=== PATIENT | female | born 2000 | race Caucasian/White ===

== ENCOUNTER → 2020-06-05 | Outpatient (CLI) | payer BC, MEDICAID ==
[~2020-06-05] MED LIST: IBU600 MG PO; RT ALBUTER2.5 MG/0.5 IH; TRIAMCINOLONE A15 G3 TP
== END ==
LOC: ZCOL.LAB
DX: Z20.822 Contact with and (suspected) exposure to COVID-19 (principal)

== ENCOUNTER 2020-06-09 11:11 | Inpatient (IN) | payer BC, MEDICAID ==
[2020-06-09] VITALS (39 sets, daily range): BP systolic 111–161; BP diastolic 55–93; PULSE 75–139; TEMP 98.1–99.1
[~2020-06-09] VITALS: Ht 154.9 cm; Wt 86.2 kg
[~2020-06-09 11:11] MED LIST changes: -IBU600 MG PO
[2020-06-09 12:14] LABS: ALBUMIN 3.6 gm/dL (3.5-5.0); BILIRUBIN,TOTAL 0.6 mg/dL (0.0-1.0); CALCIUM 9.3 mg/dL (8.4-10.2); CREATININE, serum 0.52 (0.52-1.25); POTASSIUM 4.1 mmol/L (3.4-5.0); TOTAL PROTEIN 6.9 gm/dL (6.4-8.2)
[2020-06-09 12:24] LABS: BASO % 0.2 % (0.0-2.0); EOS # 0.2 (0.0-0.7); EOS % 1.1 % (0-4.0); GRAN % 85.7 % (42.2-75.2); LYMPH % 7.4 % (20.0-51.0); MEAN CELL VOLUME 76 fl (80.0-100.0); MEAN CORPUSCULAR HEMOGLOBIN 25 pg (27.0-31.0); MEAN CORPUSCULAR HGB CONC 32 g/dl (33.0-37.0); MONO # 0.7 (0.1-0.6); MONO % 4.8 % (1.7-9.3); PLATELET COUNT 221 K/mm3 (130-400); RED BLOOD COUNT 4.86 M/mm3 (4.10-5.30); REDCELL DISTRIBUTION WIDTH-CV 14.6 % (11.5-14.5)
--- NOTE | 2020-06-09 12:29 | NUR ---
1120 PATIENT HERE FOR COMPLAINTS OF CONTRACTIONS GETTTINF MUCH MORE INTENSE SINCE YESTERDAY. SVE /[address] DWYER CALLED AND UPDATED. CONTRACTIONS EVERY 1-2 MIN. ORDERS TO ADMIT TO LABOR MAY HAVE EPIDURAL.
--- NOTE | 2020-06-09 12:33 | NUR ---
ANEF 2GM GIVEN AT THIS TIME FOR GBS +
--- NOTE | 2020-06-09 12:34 | NUR ---
6841 PATIENT SITS UP FOR EPIDUAL PLACEMENT. JOSELO HOPE CRNA AT BEDSIDE. SEE NOTES FOR QUESTIONS. PATIENT TOLERATES WELL
--- NOTE | 2020-06-09 13:37 | NUR ---
4426 DR DWYER CALLED AND UPDATED ON SROM AND NO NEW ORDERS GIVEN . ORDERS TO KEEP DR MALHOTRA
--- NOTE | 2020-06-09 14:30 | NUR ---
CARE OF THE PT ASSUMED AT THIS TIME. PT RESTING IN BED. REPORTS FEELING A LOT OF PRESSURE WITH CONTRACTIONS. ADVISED SHE CAN PUSH HER EPIDURAL BUTTON IF SHE DESIRES. PLAN OF CARE REVIEWED.
--- NOTE | 2020-06-09 16:40 | NUR ---
1545 [id number] WITH EARLY DECCELERATIONS NOTED. MOMS PULSE 137. TEMP 98.6.
--- NOTE | 2020-06-09 16:48 | NUR ---
1545 NO CHANGE IN SVE PER Sparkle RICH AND ORDERS PER DR DWYER TO START PITOCIN IF NO CHANGE. PITOCIN STARTED AT 2MU AT THIS TIME.
--- NOTE | 2020-06-09 16:55 | NUR ---
1630 3 MIN DECEL NOTED. SVE UNCHANGED AND SCALP ELECTRODE PLACED AT THIS TIME FHT 120 MOMS PULSE 120 ALSO. Mita HOPE CORE ASSEMBLY SUPERVISOR AT BEDSIDE FOR EPIDURAL DOSE.
--- NOTE | 2020-06-09 17:01 | NUR ---
1644 PITOCIN OFF AND O2 10L/MASK ON DR DWYER CALLED AND UPDATED. MONITOR STRIP REVIEWED AND ORDERS TO LEAVE PITOCIN OFF UNTIL 1729 AND THEN RESTART IF FHT ARE GOOD.
--- NOTE | 2020-06-09 17:40 | NUR ---
1730 PATIENT CONTINUES TO BE VERY UNCOMFORTABLE. Mita HOPE RAIL CREW MEMBER AT BEDSIDE FOR EPIDURAL DOSE. 1743 PATIENT STILL UNCOMFORTABLE. EPIDURAL PULLED AND PATIENT SITS UP ON EDGE OF BED. Mita HOPE RAIL CREW MEMBER AT BEDSIDE AND EPIDURAL REPLACED AT THIS TIME. SINGE SHOT AT 1743. PATIENT TOLERATE WELL SEE RAIL CREW MEMBER NOTED FOR QUESTIONS.
--- NOTE | 2020-06-09 18:20 | NUR ---
Report received from VAUGHN Thompson. Educated on pushing with contractions. Pt verbalized her understanding. to remain at nurses station. 1828: Pt starts pushing with this RN. 183: Recurrent late decelerations noted with pushing down to 75bpm with slow return to baseline noted with last 2 contractions. Oxygen administered vis oxymask at 10L. 183: requested at bedside for FHR with pushing. educated pt on potential vacuum or forecep delivery due to hearttones. Pt and verbalize their understanding and questions answer by provider. 184: Pt prepped and placed into footplates. Pt startes pushing with provider. Recurrent late decelerations with slow return to baseline noted with contractions. Provider reviews FHR strip at bedside. 1846: scalp removed by . EFM placed between pushing. 185: Spontaneous delivery of viable male infant by . Pitocin stopp per protocol. to mothers chest where dried and stimulated by nursery RN. Cord clamped X2 and cut by FOB. Care of infant assummed by nursery RN. 1854: Spontanseous delivery of intact placenta by . Pitocin ressummed at 333mus/hr per protocol. Lidocaine administered for pts increased vaginal pain. Second degree with right side wall laceration repaired by . Right labial hematoma noted. Pressure and observation to hematoma completed by . Pericare provided and pads changed. Pt repositioned in bed. Plan of care and safety precautions explaiend to pt and who verbalize their understanding. Call light within reach.
--- NOTE | 2020-06-09 22:15 | NUR ---
Pt sat on edge of bed. Epidural catheter removed without difficulty. Pt ambulatory to bathroom, standby assist. Pt unable to void. Encouraged to drink plenty of fluids and attempt in one hour. Pericare explained and completed. Pt ambulatory to PP room, standby assist. Pt oriented to room. Call light within reach.
[2020-06-10 03:00] VITALS: BP 105/65; PULSE 88; TEMP 98.3
[2020-06-10 07:15] VITALS: BP 121/86; PULSE 91; TEMP 97.8
[2020-06-10] MEDS ORDERED: IBU600 MG PO (08:56)
--- NOTE | 2020-06-10 10:08 | NUR ---
Initial visit: Mom out of room, Dad thanked Windrower Operator for offering congratulations and God's blessings for the of their son. Windrower Operator thanked family for choosing our hospital.
[2020-06-10 12:15] VITALS: BP 122/72; PULSE 100; TEMP 98
[2020-06-10 17:25] VITALS: BP 133/80; PULSE 96; TEMP 98.2
[2020-06-10 20:30] VITALS: BP 118/66; PULSE 99; TEMP 98.7
[2020-06-11 07:00] VITALS: BP 127/82; PULSE 98; TEMP 98.3
== END 2020-06-11 12:10 | disposition home or self-care (01) | DRG 807 ==
LOC: LDRO 11:11 → OB 11:30 → LDR 11:30 → OB 23:00
PROVIDERS: Obstetrics & Gynecology; ADMIT Obstetrics & Gynecology
PROC: 10E0XZZ Delivery of Products of Conception, External Approach (ICD-10-PCS; principal; 2020-06-09)
PROC: 0KQM0ZZ Repair Perineum Muscle, Open Approach (ICD-10-PCS; 2020-06-09)
PROC: 0UQMXZZ Repair Vulva, External Approach (ICD-10-PCS; 2020-06-09)
DX: O48.0 Post-term pregnancy (principal); Z37.0 Single live birth; Z3A.40 40 weeks gestation of pregnancy; O99.214 Obesity complicating childbirth; E66.9 Obesity, unspecified; O90.2 Hematoma of obstetric wound; O70.1 Second degree perineal laceration during delivery; O99.52 Diseases of the respiratory system complicating childbirth; J45.909 Unspecified asthma, uncomplicated; O99.824 Streptococcus B carrier state complicating childbirth; O36.8130 Decreased fetal movements, third trimester, not applicable or unspecified
CPT/HCPCS: J0690; J2400; J2590; J2795; J7120